=== PATIENT | female | born 1995 | race African-American/Black ===

== ENCOUNTER 2016-07-11 12:03 | Emergency (ER) | payer OTHER ==
[~2016-07-11] VITALS: Ht 149.9 cm; Wt 98.4 kg
[~2016-07-11 12:03] MED LIST: CIPRO500 MG PO; DIFLUCAN150 MG PO; KEFLEX500 MG PO; MACROBID100 MG PO; NAPROSYN500 MG PO; PYRIDIUM100 MG PO; PYRIDIUM200 MG PO; ZOFRAN ODT4 MG PO; ZOFRAN4 MG PO
[2016-07-11 12:23] VITALS: BP 100/69
== END 2016-07-11 12:25 | disposition left against medical advice (07) ==
LOC: EME → EDBD 12:03 → EME 12:25
DX: F13.10 Sedative, hypnotic or anxiolytic abuse, uncomplicated (principal); F17.200 Nicotine dependence, unspecified, uncomplicated
CPT/HCPCS: 80048; 81003; 84702; 85025; 99281; 99283; G0480